=== PATIENT | female | born 1950 | race Caucasian/White ===

== ENCOUNTER 2021-10-21 20:11 | Inpatient (IN) | payer MEDICARE, OTHER, SELFPAY ==
[2021-10-21 20:21] VITALS: BMI 24.0
[2021-10-21 20:25] VITALS: BP 144/62; PULSE 58; RESP 18; TEMP 36.8; O2SAT 99
--- NOTE | 2021-10-21 21:49 | HP.PCM.HOS_ITS ---
HPI - General General Date of Admission: 10/21/21 HPI Narrative IJEOMA TORRES, is a 71 F with a significant history of previous diabetes (resolved with weight loss and exercises); depression on trazodone and bupropion; cholecystectomy around August 302021; and depression who prese nts with excruciating epigastric pain that radiates to her entire abdomen. Her pain started gradually about 2 weeks ago and it has progressively worsened. Her pain is episodic. She described her pain and as somebody standing on her abdomen. She denies any aggravating factors. She denies any ameliorating factors except pain medication given to her at health care centers has helped with her pain. She has been to the emergency department at outside hospital multiple times. Associated withsymptoms is nausea and vomiting. Her last visit to the emergency department was on 10/20/2021. He stayed at outside hospital ED for entire day and was transferred to our hospital because of need of specialized care for possible ERCP. She has remained n.p.o. since 10/20/2021. On her current presentation to outside hospital her lipase was 22,000. Her white count was 8000. Her total bilirubin was 1.9 although her total bilirubin on 10/17/2021 was reportedly 0.4. She was diagnosed with pancreatitis at outside hospital ED. Of note her gallbladder was taken out because of gallstones with biliary colic. [facility] Medical History Carpal tunnel syndrome on both sides Depression Diabetes High cholesterol Hypertension Home Medications bupropion HCl 150 mg PO DAILY 10/21/21 [History Last Taken Unknown] trazodone 50 mg PO QHS 10/21/21 [History Last Taken Unknown] Allergy/AdvReac Type Severity Reaction Status Date / Time No Known Allergies Allergy Verified 10/21/21 21:52 Family History (Updated 10/21/21 @ 22:[address] Lewis Lea MD) Other Diabetes Heart disease Kidney disease Macular degeneration Parkinsons disease Surgical History History of cholecystectomy Hx of tonsillectomy Social History Smoking Status: Never smoker ROS ROS Narrative Pertinent positives and pertinent negatives as noted in HPI. All other systems were reviewed and are negative. Vital Signs Vital Signs Vital Signs: 10/21/21 20:25 Temperature 98.3 F Temperature Source Oral Pulse Rate 58 L Respiratory Rate 18 Blood Pressure 144/62 H Blood Pressure Mean 89 Blood Pressure Source Monitor Blood Pressure Position Semi-Fowlers Blood Pressure Location Right Arm Pulse Ox 99 Oxygen Delivery Method Room Air Weight Weight: 61.462 kg Body Mass Index (BMI) 24.0 Physical Exam Narrative Physical exam: General: Well-nourished, well-developed. Head: Normocephalic, atraumatic, no tenderness Eyes: Vision is grossly intact. EOMI ENT, no trauma, moist mucous membranes, no rhinorrhea Neck: Nontender, full range of motion, no spinal tenderness, deformities, step-off CVS: Regular rate and rhythm. S1-S2 present. No murmur, gallop or rub. Respiratory : clear to auscultation bilaterally, chest wall nontender, no wheezing Abdomen: Soft, nontender, nondistended, normal bowel sounds, no masses : Deferred Back: Nontender, no CVA tenderness, no midline spinal tenderness, deformities, step-offs Extremities: Nontender full range of motion, no trauma Skin: Normal color, no trauma, abrasions Neuro: Alert, oriented, cranial nerves II through XII grossly intact. Psychiatry: Normal mood. Normal affect. Not depressed. Not anxious. Assessment & Plan Assessment/Plan (1) Acute pancreatitis: QUALIFIERS: Acute pancreatitis complication: unspecified Pancreatitis type: biliary Qualified Code(s): K85.10 - Biliary acute pancreatitis without necrosis or infection PLAN: Acute pancreatitis Outside records were reviewed. Impression of CT chest abdomen and pelvis with and without contrast/CTA by radiologist: Mild stranding about in the proximal pancreas. We will start patient on lactated Ringer's 150 mL/h. Morphine IV. For pain. Zofran IV as needed for antiemetics. Discussed case with computer assistant, Dr. Carrillo and patient will be kept n.p.o. after midnight. GI consult. Check lipid level. CMP at outside hospital (10/20/2021 reviewed showed normal calcium at 9. AST was elevated at 449; ALT was elevated at 293; alkaline phosphatase was elevated at 506. Will trend CMP. Creatinine was normal. Lipase on 10/20/2021 at outside hospital was 22,862. Small right subpleural pulmonary nodule Identified on CT at outside hospital. Patient to follow-up longitudinally. DVT prophylaxis: SCDs ordered. Charges/Coding Visit Charges Inpatient E&M: 41323 Init Hosp L3
[2021-10-21 23:32] LABS: Cholesterol 146 mg/dL (200); High Density Lipoprotein 59 mg/dL; Triglycerides 57 mg/dL; Very Low Density Lipoprotein 11 mg/dL (5-40)
[2021-10-21] MEDS: 0.9% Saline Lock 10 ML Syringe IV (23:46)
[2021-10-21] MEDS: Lactated Ringers 1,000 ML 150 ML IV (23:46)
[2021-10-22] VITALS (9 sets, daily range): BP systolic 119–165; BP diastolic 66–98; PULSE 58–85; RESP 16–18; TEMP 36.3–37; O2SAT 97–100
[2021-10-22 05:40] LABS: Absolute Lymphocyte Count 1.13 X10^3/uL (0.83-4.51); Basophil# 0.01 X10^3/uL; Basophil% 0.2 % (0-1); Eosinophil# 0.11 X10^3/uL; Eosinophils% 1.9 % (0-5); Hematocrit 31.6 % (37-47); Hemoglobin 10.3 g/dL (12.0-15.0); Lymphocyte # 1.13 X10^3/ul (0.83-4.51); Mean Corp Hgb Conc 32.6 g/dL (32-36); Mean Corpuscular Hgb 28.4 pg (27.0-32.0); Mean Corpuscular Volume 87.1 fL (81-99); Monocyte# 0.33 X10^3/uL; Monocyte% 5.8 % (0-10); NRBC Flagged by Analyzer 0 % (0-5); Neutrophil # 4.04 X10^3/uL (2.7-7.7); Neutrophil % 71.6 % (47-70); Platelet Count 205 K/mm3 (150-450); RBC Distribution Width CV 14.3 % (11.6-14.6); RBC Distribution Width SD 45.9 fl (35.1-43.9); Red Blood Count 3.63 M/mm3 (4.2-5.4); White Blood Count 5.7 K/mm3 (4.4-11.0)
[2021-10-22] MEDS: Lactated Ringers 1,000 ML 150 ML IV (05:50)
[2021-10-22 05:57] LABS: ALB/GLOB Ratio 0.7 RATIO (0.9-2.4); AST(SGOT) 105 U/L (15-37); Alanine Aminotransfer ALT/SGPT 180 U/L (13-56); Albumin, Serum 2.9 g/dL (3.2-5.0); Alkaline Phosphatase 362 U/L (45-117); Anion Gap 10 (5-15); BUN 12 mg/dL (7-18); BUN/Creat Ratio 17.8 RATIO (10-20); Calcium,Total 8.4 mg/dL (8.5-10.1); Chloride 106 mmol/L (98-107); Creatinine, Serum 0.68 mg/dL (0.55-1.02); EST Glomerular Filtration Rate 92 mL/min (>60); Est Glom Filt Rate - Afr Amer 111 mL/min (>60); Estimated Creatinine Clearance 43.92 ml/min; Globulin 3.9 g/dL (2.2-4.2); Glucose 52 mg/dL (74-106); Protein, Total 6.8 g/dL (6.4-8.2); Sodium Level 138 mmol/L (136-145)
--- NOTE | 2021-10-22 06:28 | NURSING ---
DR ASHER MADE AWARE OF CONSULT
--- NOTE | 2021-10-22 08:19 | EX.PCM.CON.G ---
HPI Consult Data Date of Consult: 10/22/21 HPI Narrative HPI Narrative: IJEOMA TORRES, is a 71 F who presents From outside hospital with abdominal pain. She recently underwent a cholecystectomy back on 09/27/2021. She had a long history of cholelithiasis and it worsened after undergone massive weight loss of 60 pounds. She drove herself to the hospital after having excruciating abdominal pain. Biochemical analysis at outside hospital showed showed her lipase up to 22,000, bilirubin 1.9, AST ALT and alkaline phosphatase all within 5 times upper limit of normal. She had a CT scan abdomen pelvis that showed pancreatitis. She was transferred here for therapeutic ERCP.She does not drink any alcohol. No history of previous hepatitis or pancreatitis. She does not take any medicines on a daily basis except for B. And trazodone as needed. [facility] Medical History Carpal tunnel syndrome on both sides Depression Diabetes High cholesterol Hypertension Home Medications bupropion HCl 150 mg PO DAILY 10/21/21 [History Last Taken Unknown] trazodone 50 mg PO QHS 10/21/21 [History Last Taken Unknown] Allergy/AdvReac Type Severity Reaction Status Date / Time No Known Allergies Allergy Verified 10/21/21 21:52 Family History (Updated 10/21/21 @ 22:[address] Lewis Lea MD) Other Diabetes Heart disease Kidney disease Macular degeneration Parkinsons disease Surgical History History of cholecystectomy Hx of tonsillectomy Social History Smoking Status: Never smoker ROS Review of Systems ROS Unobtainable: other Constitutional Constitutional: Denies fatigue, fever(s), poor appetite, weight gain or weight loss ENT HEENT: Denies mouth lesions Cardiovascular Cardiovascular: Denies abdominal bloating, abdominal edema or abdominal pain Respiratory/Chest Respiratory/Chest: Denies change in mental status, change in phlegm color, chest congestion or chest tightness Gastrointestinal Gastrointestinal: Denies belching, bloating, change in bowel habits, change in stool character, chewing difficulty, coffee ground emesis, constipation, cramping, diarrhea, dyspepsia, dysphagia, early satiety, excessive flatus, fecal incontinence, heartburn, hematemesis, hematochezia, hemorrhoids, loose stools, melena, nausea, odynophagia, rectal bleeding, tenesmus, vomiting or weight changes Genitourinary Genitourinary: Denies abdominal discomfort, burning urination or itching Musculoskeletal Musculoskeletal: Reports as per HPI; Denies muscle weakness or myalgias Integumentary Integumentary: Denies jaundice Neurologic Neurologic: Denies lack of coordination or weakness Psychiatric Psychiatric: Denies confusion, depression, memory loss, mood swings, paranoia or suicidal ideation Endocrine Endocrinology: Denies systems reviewed and no addt'l complaints, except as documented Hematologic/Lymphatic Hematologic/Lymphatic: Denies anemia, easy bleeding, easy bruising or lymphadenopathy Allergic/Immunologic Allergic/Immunologic: Denies systems reviewed and no addt'l complaints, except as documented Physical Exam Const alert General Appearance: cooperative Orientation / Consciousness: oriented to person HEENT hearing grossly normal bilaterally Head and Scalp: normal to inspection Face and Sinus: face symmetric Nose: external nose normal Mouth: oral and palatal mucosa normal Eyes conjunctivae normal General Eye: normal appearance of both eyes Neck full ROM General: normal visual inspection Lymph Lymphatic: no lymphadenopathy noted Chest inspection of chest normal and palpation of chest normal Chest: symmetrical chest wall rise Resp normal respiratory effort Effort and Inspection: able to speak in complete sentences Cardio regular rate GI non-distended Percussion: normal to percussion Rectal Exam: deferred Neuro Speech: speech normal Gait (Neuro): normal gait Lab / Micro Data Result Diagrams: 10/22/21 05:24 10/22/21 05:24 Labs: Laboratory Results - last 24 hr 10/21/21 22:52: Triglycerides 57, Cholesterol 146, LDL Cholesterol 76, VLDL Cholesterol 11, HDL Cholesterol 59 10/22/21 05:24: WBC 5.7, RBC 3.63 L, Hgb 10.3 L, Hct 31.6 L, MCV 87.1, MCH 28.4, MCHC 32.6, RDW Std Deviation 45.9 H, RDW Coeff of Salvatore 14.3, Plt Count 205, MPV 10.0, Immature Gran % (Auto) 0.500, Neut % (Auto) 71.6 H, Lymph % (Auto) 20.0, [place] % (Auto) 5.8, Eos % (Auto) 1.9, Baso % (Auto) 0.2, Absolute Neuts (auto) 4.0, Absolute Lymphs (auto) 1.13, Nucleated RBC % 0 10/22/21 05:24: Sodium 138, Potassium 3.0 L, Chloride 106, Carbon Dioxide 22.0, Anion Gap 10, BUN 12, Creatinine 0.68, Estim Creat Clear Calc 43.92, Est GFR (MDRD) Af Amer 111, Est GFR (MDRD) Non-Af 92, BUN/Creatinine Ratio 17.8, Glucose 52 L, Calcium 8.4 L, Total Bilirubin 1.10 H, AST 105 H, ALT 180 H, Alkaline Phosphatase 362 H, Total Protein 6.8, Albumin 2.9 L, Globulin 3.9, Albumin/Globulin Ratio 0.7 L Assessment & Plan Assessment/Plan (1) Acute pancreatitis: QUALIFIERS: Pancreatitis type: biliary Acute pancreatitis complication: unspecified Qualified Code(s): K85.10 - Biliary acute pancreatitis without necrosis or infection PLAN: Patient has likely gallstone induced pancreatitis from a retained gallstone versus biliary stricture or ampullary stenosis causing postcholecystectomy pancreatitis, hepatitis and jaundice. She would benefit from therapeutic ERCP. She was explained alternatives, risk, benefits including not withstanding bleeding, infection, sepsis, perforation, need for emergent surgery and and post ercp pancreatitis. She will have an ASA 1. Charges/Coding Visit Charges Inpatient E&M: 00030 Init Hosp L2
[2021-10-22] MEDS: Dext 5%-0.45% NS 1,000 ML 150 ML IV (09:24)
[2021-10-22] MEDS: Potassium Chloride 10mEq/100mL 10 MEQ/100 ML IV.SOLN. 100 MEQ IV BOLUS ×4 (09:24→15:32)
--- NOTE | 2021-10-22 09:48 | RAD_ITS ---
ERCP INDICATION: Abdominal pain. Fluoroscopy time: Images obtained: 8 FINDINGS: Status post cholecystectomy. Stricture of the distal common bile duct treated with balloon sphincterotomy. IMPRESSION: Stricture of the distal common bile duct treated with balloon sphincterotomy. Electronically Signed: Raheel Rubio MD at 16:07 EDT , RAD/ERCP Biliary/Pancreas
--- NOTE | 2021-10-22 10:15 | PN.HOSP_ITS ---
Subjective Subjective Feels much better. Similar to event in August when she had GS pancreatitis and had her GB removed. Objective Data Objective Data Vital Signs: Vital Signs Temp Pulse Resp BP Pulse Ox 36.8 C 66 18 156/81 H 98 10/22/21 08:20 10/22/21 08:20 10/22/21 08:20 10/22/21 08:20 10/22/21 08:20 Oxygen Delivery Method Room Air Weight: 61.462 kg Body Mass Index (BMI) 24.0 Intake & Output: Intake and Output for Last 24 Hours 10/20/21 10/21/21 10/22/21 23:59 23:59 23:59 Intake Total 987.5 / 987.5 Balance 987.5 / 987.5 Lab / Micro Data Result Diagrams: 10/22/21 05:24 10/22/21 05:24 Labs: Laboratory Results - last 24 hr 10/21/21 22:52: Triglycerides 57, Cholesterol 146, LDL Cholesterol 76, VLDL Cholesterol 11, HDL Cholesterol 59 10/22/21 05:24: WBC 5.7, RBC 3.63 L, Hgb 10.3 L, Hct 31.6 L, MCV 87.1, MCH 28.4, MCHC 32.6, RDW Std Deviation 45.9 H, RDW Coeff of Salvatore 14.3, Plt Count 205, MPV 10.0, Immature Gran % (Auto) 0.500, Neut % (Auto) 71.6 H, Lymph % (Auto) 20.0, [place] % (Auto) 5.8, Eos % (Auto) 1.9, Baso % (Auto) 0.2, Absolute Neuts (auto) 4.0, Absolute Lymphs (auto) 1.13, Nucleated RBC % 0 10/22/21 05:24: Sodium 138, Potassium 3.0 L, Chloride 106, Carbon Dioxide 22.0, Anion Gap 10, BUN 12, Creatinine 0.68, Estim Creat Clear Calc 43.92, Est GFR (MDRD) Af Amer 111, Est GFR (MDRD) Non-Af 92, BUN/Creatinine Ratio 17.8, Glucose 52 L, Calcium 8.4 L, Total Bilirubin 1.10 H, AST 105 H, ALT 180 H, Alkaline Ph osphatase 362 H, Total Protein 6.8, Albumin 2.9 L, Globulin 3.9, Albumin/Globulin Ratio 0.7 L Micro: Microbiology 10/22/21 09:02 Nasal Secretion SARS-CoV-2 Antigen (Rapid) - Final Physical Exam Const alert and no apparent distress Resp normal respiratory effort, no retractions and no use of accessory muscles Cardio regular rate, regular rhythm, S1 normal heart sound and S2 normal heart sound GI normal to inspection, nondistended, normoactive bowel sounds, soft to palpation, non-tender and non-distended Extremity normal to inspection Assessment & Plan Assessment/Plan (1) Acute pancreatitis: QUALIFIERS: Pancreatitis type: biliary Acute pancreatitis complication: unspecified Qualified Code(s): K85.10 - Biliary acute pancreatitis without necrosis or infection PLAN: 1. acute pancreatitis symptomatically improved DW Dr. Carrillo, plan for ERCP today continue with IVF 2. Hypoglycemia add D5 0.45 NS until can take adequate oral 3. VTE prophylaxis: LMWH Charges/Coding Visit Charges Inpatient E&M: 48636 Subs Hosp L2
--- NOTE | 2021-10-22 12:14 | OP.ERCP_ITS ---
Patient Name: Bonnie Perez Procedure Date: 10/22/2021 9:20 AM Date of : 1950 Age: 71 Procedure: ERCP Indications: Common bile duct stone(s), Unexplained acute pancreatitis Providers: Inocente Carrillo DO Medicines: General Anesthesia Patient Profile: This is a 71 year old female. Refer to note in patient chart for documentation of history and physical. Patient has symptoms. She is status post laparoscopic cholecystectomy within the past three months. Complications: No immediate complications. Procedure: Pre-Anesthesia Assessment: - Prior to the procedure, a History and Physical was performed, and patient medications and allergies were reviewed. The patient is competent. The risks and benefits of the procedure and the sedation options and risks were discussed with the patient. All questions were answered and informed consent was obtained. Patient identification and proposed procedure were verified by the physician in the pre-procedure area. Mental Status Examination: alert and oriented. Airway Examination: normal oropharyngeal airway and neck mobility. Respiratory Examination: clear to auscultation. CV Examination: normal. Prophylactic Antibiotics: The patient does not require prophylactic antibiotics. Prior Anticoagulants: The patient has taken no previous anticoagulant or antiplatelet agents. ASA Grade Assessment: II - A patient with mild systemic disease. After reviewing the risks and benefits, the patient was deemed in satisfactory condition to undergo the procedure. The anesthesia plan was to use moderate sedation / analgesia (conscious sedation). Immediately prior to administration of medications, the patient was re-assessed for adequacy to receive sedatives. The heart rate, respiratory rate, oxygen saturations, blood pressure, adequacy of pulmonary ventilation, and response to care were monitored throughout the procedure. The physical status of the patient was re-assessed after the procedure. After obtaining informed consent, the scope was passed under direct vision. Throughout the procedure, the patient's blood pressure, pulse, and oxygen saturations were monitored continuously. The [id number] endoscope was introduced through the mouth, and advanced to the duodenum and used to inject contrast into the bile duct. The ERCP was accomplished without difficulty. The patient tolerated the procedure well. Moderate Sedation: Moderate (conscious) sedation was personally administered by an anesthesia professional. The following parameters were monitored: oxygen saturation, heart rate, blood pressure, respiratory rate, EKG, adequacy of pulmonary ventilation, and response to care. Total physician intraservice time was 15 minutes. Scope In: 11:27:06 AM Scope Out: 12:07:55 PM Total Procedure Duration Time 0 hours 40 minutes 49 seconds Findings: The leather cutter film was normal. The esophagus was successfully intubated under direct vision. The scope was advanced to a normal major papilla in the descending duodenum without detailed examination of the pharynx, larynx and associated structures, and upper GI tract. The upper GI tract was grossly normal. The bile duct was deeply cannulated. Contrast was injected. I personally interpreted the bile duct images. There was brisk flow of contrast through the ducts. The biliary orifice was stenotic. This appeared benign. The bile duct was deeply cannulated with the short-nosed traction sphincterotome. Contrast was injected. Opacification of the main bile duct was successful. The maximum diameter of the ducts was 7 mm. The lower third of the main bile duct contained one stone, which was 6 mm in diameter. The main bile duct was diffusely dilated, with a stone causing an obstruction. The largest diameter was 5 mm. A straight Roadrunner wire was passed into the biliary tree. A 5 mm biliary sphincterotomy was made with a traction (standard) sphincterotome using ERBE electrocautery. Severe bleeding from the sphincterotomy continued for over 5 minutes. The biliary tree was swept with a 15 mm balloon starting at the bifurcation. Sludge was swept from the duct. All stones were removed. Area was successfully injected with 5 mL of a 1:10,000 solution of epinephrine through the ERCP scope for hemostasis. Coagulation for hemostasis in the area of the papilla using monopolar probe through the ERCP scope was successful. Impression: - Biliary papillary stenosis, benign. - An area successfully injected. - Hemostasis in the area of the papilla with a monopolar probe was performed. - The entire main bile duct was dilated, with a stone causing an obstruction. - Choledocholithiasis was found. Complete removal was accomplished by biliary sphincterotomy and balloon extraction. - A biliary sphincterotomy was performed. - The biliary tree was swept. Procedure Code(s): --- Professional --- 81629, Endoscopic retrograde cholangiopancreatography (ERCP); with removal of calculi/debris from biliary/pancreatic duct(s) 41493, Endoscopic retrograde cholangiopancreatography (ERCP); with sphincterotomy/papillotomy 34610, Endoscopic catheterization of the biliary ductal system, radiological supervision and interpretation 95261, Unlisted procedure, biliary tract CPT copyright 2017 [employer]. All rights reserved. The codes documented in this report are preliminary and upon jewelry repairer review may be revised to meet current compliance requirements. Inocente Carrillo DO 10/22/2021 12:14:22 PM This report has been signed electronically. Number of Addenda: 0 Note Initiated On: 10/22/2021 9:20 AM
--- NOTE | 2021-10-22 13:50 | CASEMGMT ---
RN CM Face to Face with patient for initial transition planning/care coordination assessment. RN CM introduced self and role at [facility]. Patient lying in bed, alert and oriented. Patient willing to participate in assessment and is able to answer all questions appropriately. Care providers, pharmacy, and demographics verified. Patient wishes to discharge home, denies need for home health at this time. Patient states she has no further needs or concerns at this time. CM to follow for discharge planning needs that may arise. PCP: Paul [place] Specialists: none [facility]erred [facility] Insurance: [facility], [employer] Prescription Benefit: yes Living Will/HPOA: none LNOK: daughters Living Arrangements: Patient lives alone in a 2 story home. Patient states she is independent and able to ambulate stairs. Transportation: self, friend DME/HHC: Patient states she has grab bars at home. Patient denies previous HHC. Disposition Plan: Patient to discharge home with family support and follow-up plans in place. Ольга MCCURDY, RN, CM
[2021-10-22] MEDS: 0.9% Saline Lock 10 ML Syringe IV (15:40)
[2021-10-22] MEDS: Ondansetron 4 MG/2 ML Vial IV (15:40)
[2021-10-22] MEDS: levoFLOXacin IV 500 MG/100 ML BAG 100 MG IV (23:35)
[2021-10-22] MEDS: 0.9% Normal Saline 1,000 ML 250 ML IV (23:35)
[2021-10-23 02:00] VITALS: BP 158/76; PULSE 56; RESP 18; TEMP 36.9; O2SAT 99
[2021-10-23 05:36] VITALS: BP 164/82; PULSE 54; RESP 18; TEMP 37.1; O2SAT 93
[2021-10-23] MEDS: 0.9% Normal Saline 1,000 ML 250 ML IV (06:18)
[2021-10-23 06:19] LABS: Absolute Lymphocyte Count 0.74 X10^3/uL (0.83-4.51); Absolute Neutrophil Count 3.5 X10^3/uL (2.0-7.7); Basophil# 0.01 X10^3/uL; Basophil% 0.2 % (0-1); Eosinophil# 0.08 X10^3/uL; Eosinophils% 1.7 % (0-5); Hematocrit 29.1 % (37-47); Hemoglobin 9.5 g/dL (12.0-15.0); Lymphocyte # 0.74 X10^3/ul (0.83-4.51); Mean Corp Hgb Conc 32.6 g/dL (32-36); Mean Corpuscular Volume 85.8 fL (81-99); Mean Platelet Vol. 9.7 fl (6.2-12.0); Monocyte# 0.33 X10^3/uL; Monocyte% 7.1 % (0-10); NRBC Flagged by Analyzer 0 % (0-5); Neutrophil # 3.45 X10^3/uL (2.7-7.7); Neutrophil % 74.6 % (47-70); Platelet Count 198 K/mm3 (150-450); RBC Distribution Width CV 14.3 % (11.6-14.6); RBC Distribution Width SD 44.7 fl (35.1-43.9); Red Blood Count 3.39 M/mm3 (4.2-5.4); White Blood Count 4.6 K/mm3 (4.4-11.0)
[2021-10-23 06:48] LABS: ALB/GLOB Ratio 0.6 RATIO (0.9-2.4); AST(SGOT) 43 U/L (15-37); Alanine Aminotransfer ALT/SGPT 103 U/L (13-56); Albumin, Serum 2.4 g/dL (3.2-5.0); Alkaline Phosphatase 268 U/L (45-117); Anion Gap 6 (5-15); BUN 7 mg/dL (7-18); BUN/Creat Ratio 10.6 RATIO (10-20); Chloride 111 mmol/L (98-107); Creatinine, Serum 0.66 mg/dL (0.55-1.02); EST Glomerular Filtration Rate 94 mL/min (>60); Est Glom Filt Rate - Afr Amer 114 mL/min (>60); Estimated Creatinine Clearance 43.92 ml/min; Globulin 3.8 g/dL (2.2-4.2); Glucose 88 mg/dL (74-106); Potassium 3.3 mmol/L (3.5-5.1); Protein, Total 6.2 g/dL (6.4-8.2); Sodium Level 141 mmol/L (136-145)
[2021-10-23 07:18] VITALS: O2SAT 97
[2021-10-23 09:03] VITALS: BP 151/86; PULSE 53; RESP 16; TEMP 36.3; O2SAT 99
[2021-10-23] MEDS: Ensure Clear 120 ML Liquid PO (09:10)
[2021-10-23] MEDS: Potassium Chloride Oral Tablet 20 MEQ 40 MEQ PO (10:02)
--- NOTE | 2021-10-23 10:08 | PCM.DC ---
Discharge Instructions Diet Discharge Diet: No restrictions Dressing / Incision Call your doctor if you observe: - (worsening abdominal pain.) Follow Up Care Test Results: Test results from this visit will be discussed in further detail at your follow-up appointment, if applicable. Discharge Plan Admission Admit Date/Time: 10/22/21 08:28 Primary Reason for Your Visit: Choledocholithiasis Attending Provider: Jorden Campbell Consulting Providers: Inocente Carrillo Discharge Orders/Prescriptions Prescriptions: New acetaminophen 500 mg capsule 500 mg PO Q6H PRN (Reason: fever or pain) Qty: 30 RF: 0 Continued trazodone 50 mg tablet 50 mg PO QHS RF: 0 bupropion HCl 150 mg tablet extended release 24 hr 150 mg PO DAILY RF: 0 Referrals / Follow Up: Inocente Carrillo DO [STAFF PHYSICIAN] - Within 3 Months Disposition Disposition (needs filled in before D/C Order can be placed): Home, Self Care
--- NOTE | 2021-10-23 10:11 | PCM.DC.SUM ---
Providers Date of Admission: 10/22/21 Consultations 10/21/21 21:47 Consult: [employer] / Pulmonary Medicine Routine Consulting Provider: Inocente Carrillo Reason for Consult: Post cholecystectomy pancreatitis EMERGENT Consult: No MD Notified: Yes Date Notified: 10/21/21 Time Notified: 21:47 Method of Notification: Text Reason For Visit: ABD PAIN Diagnosis Discharge Diagnosis (1) Acute pancreatitis: Status: Acute Code(s): K85.90 - Acute pancreatitis without necrosis or infection, unspecified Qualifiers: Pancreatitis type: biliary Acute pancreatitis complication: unspecified Qualified Code(s): K85.10 - Biliary acute pancreatitis without necrosis or infection (2) Choledocholithiasis: Status: Acute Code(s): K80.50 - Calculus of bile duct without cholangitis or cholecystitis without obstruction Medications at Discharge Home Medications bupropion HCl 150 mg PO DAILY 10/21/21 trazodone 50 mg PO QHS 10/21/21 acetaminophen 500 mg PO Q6H PRN #30 cap 10/23/21 Hospital Course Operations ERCP Summary of Care Provided Minutes Spent on Discharge: 28 Hospital Course: This is a 71-year-old female presents with acute abdominal pain. Similar to when she has had choledocholithiasis and previously did have her gallbladder removed. 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 Patient was noted to have choledocholithiasis and had complete removal by biliary sphincterotomy and balloon extraction. Following day, today, patient is feeling much better still has some bloating but otherwise doing well. Is eating. Explained the patient that it is very unusual for her to have a cleared cholelithiasis after cholecystectomy but it can happen and could potentially happen in the future as well. Patient will be discharged home in stable condition. Physical Exam Const alert and no apparent distress Resp normal respiratory effort, no retractions, no use of accessory muscles and clear to auscultation bilaterally Cardio regular rate, regular rhythm, S1 normal heart sound and S2 normal heart sound GI GI Narrative: Mild epigastric tenderness. Weight / BMI Weight Weight: 61.462 kg Body Mass Index (BMI) 24.0 ABG / Lab / Microbiology Data Result Diagrams: 10/23/21 05:58 10/23/21 05:58 Laboratory: Laboratory Results - last 24 hr 10/23/21 05:58: WBC 4.6, RBC 3.39 L, Hgb 9.5 L, Hct 29.1 L, MCV 85.8, MCH 28.0, MCHC 32.6, RDW Std Deviation 44.7 H, RDW Coeff of Salvatore 14.3, Plt Count 198, MPV 9.7, Immature Gran % (Auto) 0.400, Neut % (Auto) 74.6 H, Lymph % (Auto) 16.0 L, [place] % (Auto) 7.1, Eos % (Auto) 1.7, Baso % (Auto) 0.2, Absolute Neuts (auto) 3.5, Absolute Lymphs (auto) 0.74 L, Nucleated RBC % 0 10/23/21 05:58: Sodium 141, Potassium 3.3 L, Chloride 111 H, Carbon Dioxide 24.0, Anion Gap 6, BUN 7, Creatinine 0.66, Estim Creat Clear Calc 43.92, Est GFR (MDRD) Af Amer 114, Est GFR (MDRD) Non-Af 94, BUN/Creatinine Ratio 10.6, Glucose 88, Calcium 8.0 L, Total Bilirubin 0.50, AST 43 H, ALT 103 H, Alkaline Phosphatase 268 H, Total Protein 6.2 L, Albumin 2.4 L, Globulin 3.8, Albumin/Globulin Ratio 0.6 L Microbiology: Microbiology 10/22/21 09:02 Nasal Secretion SARS-CoV-2 Antigen (Rapid) - Final Radiography Diagnostic Testing: Radiology Impression Endo Retro Cholangiopancreatogram 10/22/21 09:48 D/C Instructions Discharge Diet: No restrictions Call your doctor if you observe: - (worsening abdominal pain.) Meaningful Use Info Meaningful Use Diagnoses (Choose all that apply): None applicable Discharge Plan Admission Admit Date/Time: 10/22/21 08:28 Primary Reason for Your Visit: Choledocholithiasis Attending Provider: Jorden Campbell Consulting Providers: Inocente Carrillo Discharge Orders/Prescriptions Prescriptions: New acetaminophen 500 mg capsule 500 mg PO Q6H PRN (Reason: fever or pain) Qty: 30 RF: 0 Continued trazodone 50 mg tablet 50 mg PO QHS RF: 0 bupropion HCl 150 mg tablet extended release 24 hr 150 mg PO DAILY RF: 0 Referrals / Follow Up: Inocente Carrillo DO [STAFF PHYSICIAN] - Within 3 Months Disposition Disposition (needs filled in before D/C Order can be placed): Home, Self Care Charges/Coding Visit Charges Inpatient E&M: 54441 Disch Hosp
[2021-10-23 11:36] VITALS: BP 164/85; PULSE 63; RESP 16; TEMP 36.8; O2SAT 100
== END 2021-10-23 12:54 | disposition home or self-care (01) | DRG 444 ==
PROVIDERS: Hospitalist; Internal Medicine Gastroenterology; Admitting Provider Family Medicine
PROC: 0FC98ZZ Extirpation of Matter from Common Bile Duct, Via Natural or Artificial Opening Endoscopic (ICD-10-PCS; CPT 43260; principal; 2021-10-22 09:15)
DX: K80.51 Calculus of bile duct without cholangitis or cholecystitis with obstruction (principal); K85.90 Acute pancreatitis without necrosis or infection, unspecified; E78.00 Pure hypercholesterolemia, unspecified; I10 Essential (primary) hypertension; E16.2 Hypoglycemia, unspecified; Z20.822 Contact with and (suspected) exposure to COVID-19; F32.A Depression, unspecified; Z79.899 Other long term (current) drug therapy; Z90.49 Acquired absence of other specified parts of digestive tract
CPT/HCPCS: 36415; 74330; 80053; 80061; 85025; 87811; J7030; J7120; A4216; C1769; J2405; J3490; J7799